=== PATIENT | female | born 1995 | race African-American/Black ===

== ENCOUNTER 2018-05-10 20:11 | Emergency (ER) | payer OTHER ==
--- NOTE | 2018-05-10 20:18 | PDOC ---
Rapid Medical Evaluation Medical Evaluation: Allergies Allergy/AdvReac Type Severity Reaction Status Date / Time No Known Allergies Allergy Verified 05/10/18 20:15 I have performed a brief in-person evaluation of this patient. The patient presents with a chief complaint of: C/O sharp epigastric pain from last night along with NBNB emesis and watery diarrhea today; denies possible bad food exposure, recent travel Pertinent physical exam findings: In NAD, abdomen soft, ND I have ordered the following: Labs, IVF, Pepcid, Zofran The patient will proceed to the ED for further evaluation. 05/10/18 20:16
[2018-05-10 20:19] VITALS: BP 146/66; PULSE 112; TEMP 98.5; BMI 29.2
[2018-05-10] MEDS ORDERED: ONDANSETRON 4 MG/2 ML VIAL IVPUSH ONE (20:19)
[2018-05-10] MEDS ORDERED: SODIUM CHLORIDE 1,000 ML IV STA (20:19)
[2018-05-10] MEDS ORDERED: FAMOTIDINE 20 MG/50 ML IVPB 20 MG/50 ML MG IVPB ONE ×2 (20:19→21:54)
[2018-05-10 20:45] LABS: BASO % 0.1 % (0-2.0); EOS % 0.6 % (0-4.5); HEMATOCRIT 41.7 % (32.4-45.2); HEMOGLOBIN 14.1 GM/dL (10.7-15.3); LYMPH % 10.9 % (8-40); MCHC 33.8 g/dl (32.0-36.0); MEAN CELL VOLUME 82.8 fl (80-96); MEAN PLT VOLUME 9.3 fl (7.5-11.1); MONO % 5.5 % (3.8-10.2); NEUT % 82.9 % (42.8-82.8); PLATELET COUNT 243 K/MM3 (134-434); RBC 5.03 M/mm3 (3.60-5.2); RDW 12.7 % (11.6-15.6)
[2018-05-10] MEDS ORDERED: ONDANSETRON 4 MG/2 ML VIAL ONE (21:53)
--- NOTE | 2018-05-10 22:01 | PDOC ---
History of Present Illness - General Chief Complaint: Vomiting/Diarrhea Stated Complaint: Vomiting/Diarrhea/ABD PAIN Time Seen by Provider: 05/10/18 21:14 History Source: Patient Exam Limitations: No Limitations - History of Present Illness Travel History: No Initial Comments: 05/10/18 21:56 HISTORY OF PRESENT ILLNESS: 23-year-old woman denies medical history presents emergency department for evaluation of body aches, cough, abdominal pain, nausea , vomiting, diarrhea for the past 5 days. Patient states the vomiting and diarrhea started earlier today and she has been unable to tolerate any oral intake. No recent travel. Patient works of the [employer] and has likely had multiple sick contacts as a result. PAST MEDICAL HISTORY: Denies past medical history SURGICAL HISTORY: Denies ALLERGIES: No known drug allergies REVIEW OF SYSTEMS General/Constitutional: Resolved fevers. Denies weakness, weight change. HEENT: Denies change in vision. Denies ear pain or discharge. +sore throat. Cardiovascular: Denies chest pain or shortness of breath. Respiratory: Denies cough, wheezing, or hemoptysis. Gastrointestinal: (+)nausea, vomiting, diarrhea. Denies constipation. Denies rectal bleeding. Genitourinary: Denies dysuria, frequency, or change in urination. Musculoskeletal: +myalgias. Denies neck or back pain. Skin and breasts: Denies rash or easy bruising. Neurologic: Denies headache, vertigo, loss of consciousness, or loss of sensation. Psychiatric: Denies depression or anxiety. Endocrine: Denies increased thirst. Denies abnormal weight change. Hematologic/Lymphatic: Denies anemia, easy bleeding, or history of blood clots. Allergic/Immunologic: Denies hives or skin allergy. Denies latex allergy. PHYSICAL EXAM General Appearance: Well-appearing, appropriately dressed. No apparent distress , no intoxication. HEENT: EOMI, PERRLA, normal voice, TMs normal. No conjunctival pallor. No photophobia, scleral icterus. pharynx erythematous Neck: Supple. Trachea midline. No tenderness, rigidity, carotid bruit, stridor , lymphadenopathy, or thyromegaly. Respiratory/Chest: Lungs CTAB. No shortness of breath, chest tenderness, respiratory distress, accessory muscle use. No crackles, rales, rhonchi, stridor , wheezing, dullness Cardiovascular: RRR. S1, S2. No JVD, murmur, bradycardia, tachycardia. Vascular Pulses: Dorsalis-Pedis (R): 2+, Dorsalis-Pedis (L): 2+ Gastrointestinal/Abdominal: Normal bowel sounds. Abdomen soft, non-distended. No tenderness or rebound tenderness. No organomegaly, pulsatile mass, guarding, hernia, hepatomegaly, splenomegaly. Musculoskeletal/Extremities: Normal inspection. FROM of all extremities, normal capillary refill. Pelvis Stable. No CVA tenderness. No tenderness to extremities, pedal edema, swelling, erythema or deformity. Integumentary: Appropriate color, dry, warm. No cyanosis, erythema, jaundice or rash Neurologic: skip miner blasting II-XII intact. Fully oriented, alert. Appropriate mood/affect. Motor strength 5/5. No appreciable EOM palsy, facial droop or sensory deficit. Past History - Past Medical History Allergies/Adverse Reactions: Allergies Allergy/AdvReac Type Severity Reaction Status Date / Time No Known Allergies Allergy Verified 05/10/18 20:15 Home Medications: Ambulatory Orders Ondansetron [Zofran Odt -] 4 mg SL TID #21 od.tablet 05/11/18 - Suicide/Smoking/Psychosocial Hx Smoking History: Smoker current status UNK Hx Alcohol Use: No Drug/Substance Use Hx: No *Physical Exam - Vital Signs Last Vital Signs Temp Pulse Resp BP Pulse Ox 98.5 F 112 H 20 146/66 97 05/10/18 20:15 05/10/18 20:15 05/10/18 20:15 05/10/18 20:15 05/10/18 20:15 Moderate Sedation - Procedure Monitoring Vital Signs: Procedure Monitoring Vital Signs Temperature 98.5 F 05/10/18 20:15 Pulse Rate 112 H 05/10/18 20:15 Respiratory Rate 20 05/10/18 20:15 Blood Pressure 146/66 05/10/18 20:15 O2 Sat by Pulse Oximetry (%) 97 05/10/18 20:15 ED Treatment Course - LABORATORY CBC & Chemistry Diagram: 05/10/18 20:37 05/10/18 22:05 - ADDITIONAL ORDERS Additional order review: Laboratory Results 05/10/18 05/10/18 20:37 20:20 Sodium Cancelled Potassium Cancelled Chloride Cancelled Carbon Dioxide Cancelled Anion Gap Cancelled BUN Cancelled Creatinine Cancelled Creat Clearance w eGFR Cancelled Random Glucose Cancelled Calcium Cancelled Urine HCG, Qual Negative 05/10/18 20:37 RBC 5.03 MCV 82.8 MCHC 33.8 RDW 12.7 MPV 9.3 Neutrophils % 82.9 H Lymphocytes % 10.9 Monocytes % 5.5 Eosinophils % 0.6 Basophils % 0.1 Medical Decision Making - Medical Decision Making 05/10/18 22:00 A/P: 23-year-old woman 5 days of influenza-like illness Labs, urine Pepcid 20mg IV now Zofran 4 mg IV now Normal saline 1 L bolus Reassess 05/11/18 00:45 Laboratory testing is unremarkable. Calcium 7.7 corrected to 8.4. Lipase 100. Patient with influenza-like illness but given symptoms were present for greater than 72 hours I will defer testing or treatment for influenza at this time. Patient is able to tolerate soup without difficulty. I will discharge the patient home follow-up to primary doctor as needed. I discussed the physical exam findings, ancillary test results and final diagnoses with the patient. I answered all of the patient's questions. The patient was satisfied with the care received and felt comfortable with the discharge plan and treatment plan. The patient will call their primary care physician within 24 hours to arrange follow-up and will return to the Emergency Department with any new, persistent or worsening symptoms. *DC/Admit/Observation/Transfer Diagnosis at time of Disposition: Viral gastroenteritis - Discharge Dispostion Disposition: HOME Condition at time of disposition: Stable Decision to Admit order: No - Prescriptions Prescriptions: Ondansetron [Zofran Odt -] 4 mg SL TID #21 od.tablet - Referrals Referrals: Joe Arreola [Primary Care Provider] - - Patient Instructions Additional Instructions: Rest, drink lots of fluids: Teas, water, soups Kerri elliot, carbonated beverages for the bubbles May try peppermint teas Avoid heavy , spicy or fatty foods until symptoms have resolved Avoid contact with others until fevers and symptoms resolved Lots of handwashing and good hygiene Continue [id number] medications for symptomatic relief Tylenol or Motrin for fever and pain May use Zofran-one tablet dissolved on tongue as needed for nausea. May repeat every 8 hours Followup with private physician in one to 2 days as needed Return to emergency department for worsened symptoms, fevers, dehydration - Post Discharge Activity Forms/Work/School Notes: Back to Work
[2018-05-10 22:49] LABS: ALBUMIN 3.1 g/dl (3.4-5.0); ALK PHOS 65 U/L (45-117); ANION GAP 7 MMOL/L (8-16); BILIRUBIN,TOTAL 0.4 mg/dL (0.2-1); BLOOD UREA NITROGEN 9 mg/dL (7-18); CALCIUM 7.7 mg/dL (8.5-10.1); CHLORIDE 106 mmol/L (98-107); CO2 27 mmol/L (21-32); CREATININE 0.7 mg/dL (0.55-1.3); GLUCOSE,RANDOM 88 mg/dL (74-106); LIPASE 100 U/L (73-393); POTASSIUM 3.7 mmol/L (3.5-5.1); SGOT/AST 13 U/L (15-37); SGPT/ALT 14 U/L (13-61); SODIUM 141 mmol/L (136-145); TOT PROT 6.7 g/dl (6.4-8.2)
[2018-05-10] MEDS ORDERED: MORPHINE SULFATE 2 MG/ML VIAL ONE (23:35)
[2018-05-10] MEDS ORDERED: METOCLOPRAMIDE HCL INJECTION 10 MG/2 ML VIAL ONE (23:35)
[2018-05-10] MEDS ORDERED: METOCLOPRAMIDE HCL INJECTION 10 MG/2 ML VIAL IVPUSH ONE (23:40)
[2018-05-10] MEDS ORDERED: morphine CARPU-JECT 2 MG/1 ML DISP.SYRIN IVPUSH ONE (23:40)
--- NOTE | 2018-05-11 00:56 | PDOC ---
*Physical Exam - Vital Signs Last Vital Signs Temp Pulse Resp BP Pulse Ox 98.5 F 112 H 20 146/66 97 05/10/18 20:15 05/10/18 20:15 05/10/18 20:15 05/10/18 20:15 05/10/18 20:15 ED Treatment Course - LABORATORY CBC & Chemistry Diagram: 05/10/18 20:37 05/10/18 22:05 - ADDITIONAL ORDERS Additional order review: Laboratory Results 05/10/18 05/10/18 05/10/18 22:05 20:37 20:20 Sodium 141 Cancelled Potassium 3.7 Cancelled Chloride 106 Cancelled Carbon Dioxide 27 Cancelled Anion Gap 7 L Cancelled BUN 9 Cancelled Creatinine 0.7 Cancelled Creat Clearance w eGFR > 60 Cancelled Random Glucose 88 Cancelled Calcium 7.7 L Cancelled Total Bilirubin 0.4 AST 13 L ALT 14 Alkaline Phosphatase 65 Total Protein 6.7 Albumin 3.1 L Lipase 100 Urine HCG, Qual Negative 05/10/18 20:37 RBC 5.03 MCV 82.8 MCHC 33.8 RDW 12.7 MPV 9.3 Neutrophils % 82.9 H Lymphocytes % 10.9 Monocytes % 5.5 Eosinophils % 0.6 Basophils % 0.1 - Medications Given in the ED: ED Medications Discontinued Medications Generic Name Dose Route Start Last Admin Trade Name Freq PRN Reason Stop Dose Admin Famotidine/Sodium Chloride 20 mg in 50 mls @ 100 mls/hr 05/10/18 20:19 22:09 Pepcid 20 Mg Premixed Ivpb - IVPB 05/10/18 20:48 100 mls/hr ONCE ONE Administration Sodium Chloride 1,000 mls @ 1,000 mls/hr 05/10/18 20:19 05/10/18 22:08 Normal Saline - IV 05/10/18 21:18 1,000 mls/hr ASDIR STA Administration Metoclopramide HCl 10 mg 05/10/18 23:40 05/10/18 23:50 Reglan Injection - IVPUSH 05/10/18 23:41 10 mg ONCE ONE Administration Morphine Sulfate 2 mg 05/10/18 23:40 05/10/18 23:50 Morphine Injection - IVPUSH 05/10/18 23:41 2 mg ONCE ONE Administration Ondansetron HCl 4 mg 05/10/18 20:19 05/10/18 22:09 Zofran Injection IVPUSH 05/10/18 20:20 4 mg ONCE ONE Administration Medical Decision Making - Medical Decision Making 05/11/18 00:55 I discussed the case with the mid level provider and I agree with his assessment and management of the patient *DC/Admit/Observation/Transfer Diagnosis at time of Disposition: Viral gastroenteritis - Discharge Dispostion Disposition: HOME Condition at time of disposition: Stable - Referrals Referrals: Joe Arreola [Primary Care Provider] - - Patient Instructions - Post Discharge Activity
== END 2018-05-11 01:21 | disposition home or self-care (01) ==
LOC: JER 20:11
PROC: 3E0337Z Introduction of Electrolytic and Water Balance Substance into Peripheral Vein, Percutaneous Approach (ICD-10-PCS; principal; 2018-05-10)
PROC: 3E033GC Introduction of Other Therapeutic Substance into Peripheral Vein, Percutaneous Approach (ICD-10-PCS; 2018-05-10)
PROC: 3E033GC Introduction of Other Therapeutic Substance into Peripheral Vein, Percutaneous Approach (ICD-10-PCS; 2018-05-10)
PROC: 3E033NZ Introduction of Analgesics, Hypnotics, Sedatives into Peripheral Vein, Percutaneous Approach (ICD-10-PCS; 2018-05-10)
PROC: 3E033GC Introduction of Other Therapeutic Substance into Peripheral Vein, Percutaneous Approach (ICD-10-PCS; 2018-05-10)
DX: A08.4 Viral intestinal infection, unspecified (principal); B97.89 Other viral agents as the cause of diseases classified elsewhere
CPT/HCPCS: 36415; 80053; 83690; 84703; 85025; 96361; 96365; 96375; 99281-25; 99284-25; J7030